=== PATIENT | male | born 1980 | race Caucasian/White ===

== ENCOUNTER → 2017-11-08 | Outpatient (CLI) | payer OTHER ==
[~2017-11-08] MED LIST: ALBU1AER9; AZITHROMYCIN; LISI-725 PO; OPTIRAY 320 IV PRN; PRED20TA PO
--- NOTE | 2017-11-08 17:00 | DIAGNOSTIC IMAGING REPORT ---
HEAD COMBO CLINICAL HISTORY: 37 years-old Male presenting with MIGRAINE HEADACHES. TECHNIQUE: Multidetector CT imaging of the head was performed before and after the administration of intravenous contrast. IV contrast: 93 mL of Optiray 320. A dose lowering technique was used consistent with the principles of ALARA (as low as reasonably achievable). COMPARISON: None. CT DOSE (mGy.cm): The estimated cumulative dose is 1228.53 mGy.cm. FINDINGS: Film Technician topogram: Unremarkable. Ventricles and sulci normal in size. Brain parenchyma normal in appearance with preserved sun-white differentiation. No mass effect or midline shift. No hemorrhage or acute territorial infarct. No extra-axial fluid collection. Paranasal sinuses and mastoid air cells clear. Calvarium intact. No abnormal parenchymal enhancement. Intracranial vasculature grossly patent. IMPRESSION: 1. No acute intracranial pathology. No abnormal enhancement. Electronically signed by: Patel Santoro M.D. 11/08/2017 4:59 PM Dictated Date/Time: 11/08/2017 4:54 PM
[2017-11-08 17:21] LABS: BASO % 0.3 %; BASO ABS # 0.03 K/uL (0-0.2); EOS % 1.3 %; EOS ABS # 0.13 K/uL (0-0.5); HEMATOCRIT 46.8 % (42-52); HEMOGLOBIN 16.1 g/dL (14.0-18.0); IG# 0.04 K/uL (0.00-0.02); LYMPH % 26.6 %; LYMPH ABS # 2.57 K/uL (1.2-3.4); MEAN CELL VOLUME 82.5 fL (80-100); MEAN CORPUSCULAR HEMOGLOBIN 28.4 pg (25-34); MEAN PLATELET VOLUME 10.5 fL (7.4-10.4); MONO % 8.1 %; MONO ABS # 0.78 K/uL (0.11-0.59); NEUT % 63.3 %; PLATELET COUNT 201 K/uL (130-400); RED CELL DISTRIBUTION WIDTH CV 13.3 % (11.5-14.5); RED CELL DISTRIBUTION WIDTH SD 39.9 fL (36.4-46.3); WHITE BLOOD COUNT 9.65 K/uL (4.8-10.8)
[2017-11-08 17:22] LABS: MEAN CORPUSCULAR HGB CONC 34.4 g/dl (32-36)
[2017-11-08 17:49] LABS: ALBUMIN 4.1 gm/dl (3.4-5.0); ALKALINE PHOSPHATASE 96 U/L (45-117); ALT/SGPT 66 U/L (12-78); AST/SGOT 28 U/L (15-37); BLOOD UREA NITROGEN 10 mg/dl (7-18); CALCIUM 8.9 mg/dl (8.5-10.1); CARBON DIOXIDE 29 mmol/L (21-32); CREATININE 1.05 mg/dl (0.60-1.40); GLUCOSE 91 mg/dl (70-99); POTASSIUM 4.4 mmol/L (3.5-5.1); SODIUM 133 mmol/L (136-145)
== END | disposition home or self-care (01) ==
LOC: C.CTS 16:35
PROVIDERS: ATTEND Family Medicine
DX: G43.909 Migraine, unspecified, not intractable, without status migrainosus (principal)

== ENCOUNTER 2020-05-23 05:04 | Observation (INO) ==
--- NOTE | 2020-05-21 10:06 | Anesthesiology Consultation ---
Date of Service May 21, 2020 Assessment & Plan (1) Encounter for pre-operative examination: Chart Review Chart Review: Acceptable Risk for Surgery (pending DOS evaluation and preop Covid testing ) and Patient NOT seen in Pre Admission Testing Per nursing assessment 05/20/2020, pt resides in [facility]. 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 Wears mask, uses good hand hygiene and socially distances. 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 At time of nursing interview, no known Covid positive contacts or Covid related symptoms. Covid test 05/19/20= results pending. Covid results will need confirmed DOS but then pt will need reassessed by anesthesia DOS- if pt did come into contact with PUI/Covid patients at [facility] then he may need rapid Wyatt test vs. rule. Will leave to anesthesiologist discretion. History Surgery Operation Date: 05/23/20 07:15 Proposed Procedures p Tonsillectomy, - Breanna Mitchell MD s Uvulopalatoplasty, Somnoplasty of Tongue - Breanna Mitchell MD Height/Weight Height: 6 ft 3 in Weight: 145.15 kg Allergies Allergy/AdvReac Type Severity Reaction Status Date / Time sulfamethoxazole Allergy Unknown Rash Verified 05/20/20 15:59 [From Bactrim] trimethoprim [From Bactrim] Allergy Unknown Rash Verified 05/20/20 15:59 Medications Home Medications Medication Instructions Recorded Confirmed Last Taken clonazepam 1 mg PO BID PRN 05/20/20 05/20/20 Unknown lisinopril 10 mg PO QAM 05/20/20 05/20/20 Unknown nebivolol [Bystolic] 5 mg PO QAM 05/20/20 05/20/20 Unknown nilotinib [Tasigna] 300 mg PO Q12H 05/20/20 05/20/20 Unknown Past Medical History Medical History Anxiety CML in remission DX'D 5 YRS AGO F/U DR ROLAND COLON GERD (gastroesophageal reflux disease) Hypertension Sleep apnea Past Family History Family History Brother Family history of diabetes mellitus Past Surgical History Surgical History History of cholecystectomy History of colonoscopy History of esophagogastroduodenoscopy (EGD) History of neck surgery FUSION C3-C4 Social History Smoking Status: Former smoker Do You Dip or Chew Tobacco: No (QUIT YRS AGO) Smoking End Date: QUIT 3 YRS AGO Hx Alcohol Use: Yes Alcohol type: hard liquor alcohol intake frequency: a few times a week Hx Substance Use: No Testing Laboratory Results 03/29/20= WBC: 11.16 H/H: 16.6/50.1 PLATELETS: 228 SODIUM: 140 POTASSIUM: 4.5 CHLORIDE: 98 CO2: 30 BUN: 13 CREATININE: 1.2 GLUCOSE: 90 Electrocardiogram Date: 03/29/20 Findings: + NSR @ (83) Chest X-Ray Date: 02/29/20 Findings: + NAD Echocardiogram Date: 01/29/20 EF: 55% Other Findings: + LVH (Mild/concentric) Valvular Disease: + no significant valvular disease Stress Test Date: 04/21/17 Type: exercise (Echo) Resting EF: 70% Resting LV Function: normal Resting RWMA: + none MPHR =90%. The exercise echocardiographic examination is normal without resting left ventricular wall motion abnormalities or inducible ischemia. Stress EKG response was normal. 8.3 METS achieved. Mild TR.
--- NOTE | 2020-05-21 14:58 | History & Physical Report ---
Date of Service May 21, 2020 Assessment & Plan (1) Sleep apnea: tonsillectomy, uvulopalatoplasty, somnoplasty of tongue History of Present Illness Chief Complaint: sleep apnea Primary Care Provider: Jerry Peters 40 yo with sleep apnea, unable to wear CPAP Allergies Allergy/AdvReac Type Severity Reaction Status Date / Time sulfamethoxazole Allergy Unknown Rash Verified 05/20/20 15:59 [From Bactrim] trimethoprim [From Bactrim] Allergy Unknown Rash Verified 05/20/20 15:59 Home Medications Home Medications Medication Instructions Recorded Confirmed Type clonazepam 1 mg PO BID PRN 05/20/20 05/20/20 History lisinopril 10 mg PO QAM 05/20/20 05/20/20 History nebivolol [Bystolic] 5 mg PO QAM 05/20/20 05/20/20 History nilotinib [Tasigna] 300 mg PO Q12H 05/20/20 05/20/20 History Past Med/Surg History Medical History Anxiety CML in remission DX'D 5 YRS AGO F/U DR ROLAND COLON GERD (gastroesophageal reflux disease) Hypertension Sleep apnea Surgical History History of cholecystectomy History of colonoscopy History of esophagogastroduodenoscopy (EGD) History of neck surgery FUSION C3-C4 Family History Brother Family history of diabetes mellitus Social History Smoking Status: Former smoker Second Hand Exposure: No; Hx Alcohol Use: Yes Alcohol type: hard liquor Hx Substance Use: No Preferred Language: Citizen Of [place] Communication Ability: Effective Discharge Planner Required: No Beliefs That Will Affect Care: None Current Living Situation: Spouse and Family Feels Safe at Home: Yes Physical Exam Constitutional: WD/WN, vitals as above Eyes: PERRL, conjunctivae normal, anicteric sclerae ENMT: Mouth: + oropharynx abnormality (large tonsils and tongue) Neck: trachea midline, no thyromegaly Respiratory: normal respiratory effort, lungs clear to auscultation Cardiovascular: RRR, no murmur, no edema
--- NOTE | 2020-05-22 12:25 | History & Physical Report ---
Date of Service May 22, 2020 History of Present Illness Primary Care Provider: Jerry Peters Allergies Allergy/AdvReac Type Severity Reaction Status Date / Time sulfamethoxazole Allergy Unknown Rash Verified 05/20/20 15:59 [From Bactrim] trimethoprim [From Bactrim] Allergy Unknown Rash Verified 05/20/20 15:59 Home Medications Home Medications Medication Instructions Recorded Confirmed Type clonazepam 1 mg PO BID PRN 05/20/20 05/20/20 History lisinopril 10 mg PO QAM 05/20/20 05/20/20 History nebivolol [Bystolic] 5 mg PO QAM 05/20/20 05/20/20 History nilotinib [Tasigna] 300 mg PO Q12H 05/20/20 05/20/20 History Past Med/Surg History Medical History (Updated 05/21/20 @ 14:58 by Breanna Mitchell MD) Anxiety CML in remission DX'D 5 YRS AGO F/U DR ROLAND COLON GERD (gastroesophageal reflux disease) Hypertension Sleep apnea Surgical History History of cholecystectomy History of colonoscopy History of esophagogastroduodenoscopy (EGD) History of neck surgery FUSION C3-C4 Family History Brother Family history of diabetes mellitus Social History Smoking Status: Former smoker Second Hand Exposure: No; Hx Alcohol Use: Yes Alcohol type: hard liquor Hx Substance Use: No Preferred Language: Cape Verdean Communication Ability: Effective Hospitalist Program Director Required: No Beliefs That Will Affect Care: None Current Living Situation: Spouse and Family Feels Safe at Home: Yes
[2020-05-23] MEDS ORDERED: LACTATED RINGER'S 1,000 ML IV SCH (06:00)
[2020-05-23] MEDS ORDERED: CEFAZOLIN 3000MG 72.5 ML IV SCH (06:00)
[2020-05-23] MEDS ORDERED: ONDANSETRON INJ 2 MG/ML 2 ML VIAL ONE (06:35)
[2020-05-23] MEDS ORDERED: LIDOCAINE HCL 2% 2 ML VIAL/AMP(20MG/ML) INFIL ONE (06:35)
[2020-05-23] MEDS ORDERED: MIDAZOLAM HCL 1 MG/ML 2ML VIAL ONE (06:35)
[2020-05-23] MEDS ORDERED: PROPOFOL IV EMULSION 10 MG/ML 20 ML VIAL IV ONE (06:35)
[2020-05-23] MEDS ORDERED: LARYING-O-JET KIT (LTA) ONE (06:35)
[2020-05-23] MEDS ORDERED: fentaNYL citrate 100 MCG/2 ML VIAL ONE ×2 (06:35→08:01)
[2020-05-23] MEDS ORDERED: DEXAMETHASONE SOD INJ 4 MG/ML VIAL ONE (06:35)
[2020-05-23] MEDS ORDERED: EPINEPHrine INJ 1 MG/ML AMP ONE (06:45)
[2020-05-23] MEDS ORDERED: BUPIVACAINE 0.5 % 5 MG/1 ML MPF 30ML VIAL ONE (06:46)
[2020-05-23] MEDS ORDERED: DexMEDEtomidine HCL IV 100 MCG/ML VIAL ONE (06:47)
--- NOTE | 2020-05-23 06:56 | History & Physical Bridge Note ---
Date of Service May 23, 2020 History & Physical Bridge Note I have examined the patient, reviewed the History & Physical and in the interval since the performance of the History & Physical I have noted the following changes of clinical significance: no changes noted
[2020-05-23] MEDS ORDERED: ONDANSETRON INJ 2 MG/ML 2 ML VIAL IV PRN (07:26)
[2020-05-23] MEDS ORDERED: ATROPINE SULFATE 0.1 MG/ML 10ML SYR IV PRN (07:26)
[2020-05-23] MEDS ORDERED: LABETALOL HCL IV 5 MG/ML 20ML IV PRN (07:26)
[2020-05-23] MEDS ORDERED: ACETAMINOPHEN/HYDROCODONE ELIX 15 ML/CUP UDP PO PRN (08:45)
[2020-05-23] MEDS: fentaNYL citrate 100 MCG/2 ML VIAL IV PRN ×4 (08:59→09:14)
--- NOTE | 2020-05-23 09:00 | Operative Report ---
Post Operative Report Pre & Post Diagnosis Operation Date: 05/23/20 07:00 Pre-Op Diagnosis: Sleep Apnea Post-Op Diagnosis: Sleep Apnea I identified the patient and participated in the time-out.: Yes Procedure Operation Date: 05/23/20 07:00 Actual Procedures p Tonsillectomy, Uvulopalatoplasty,(Not Applicable) - Breanna Mitchell MD s Somnoplasty of Tongue(Not Applicable) - Breanna Mitchell MD Surgeon Breanna Mitchell MD Baseball Coach None Estimated Blood Loss 250 Findings Consistent with Post-Op Diagnosis Specimens Tonsils and uvula Anesthesia Type General Complications none Disposition Accompanied Patient To Recovery: Yes Disposition: Recovery Room Indications 40-year-old with significant sleep apnea and inability to tolerate CPAP Description of Procedure He was brought to the operating room, prepped and draped in the usual sterile manner after general endotracheal anesthesia and after proper identification. The mouthgag was placed in the soft palate was retracted using the red Urbina catheter. The peritonsillar area were injected with 0.5% Marcaine with 1- 200,000 strength epinephrine. Adenoid area was inspected and there was minimal adenoid tissue. Right tonsillectomy was performed using the Coblation device from the superior pole to the inferior pole as was the left tonsillectomy. Hemostasis was controlled using the Coblation device. The uvula and a portion of the soft palate was resected of its anterior half using the #12 blade retaining the posterior portion of the uvula. Hemostasis was controlled using the suction cautery and the Coblation device. V cut was placed in the palatal glasses fold and a flap was cut into the palatopharyngeus fold which was then rotated laterally into the V cut. All the mucosal edges were closed with int errupted locking 2-0 chromic sutures with the uvula sewn upon itself. The pharynx was irrigated clean with saline. Radiofrequency volume reduction of the tongue base was performed using the EQUIP Advantage machine creating 7 double-pronged lesions in the base of the tongue with the setting at 600 J in the rapid lesion mode. Pharynx was irrigated clean with saline. He tolerated procedure well was taken recovery area in satisfactory condition. I attest to the content of the Intraoperative Record and any orders documented therein. Any exceptions are noted below.
[2020-05-23] MEDS: LACTATED RINGER'S 1,000 ML IV SCH ×2 (09:45→19:09)
--- NOTE | 2020-05-23 09:46 | Anesthesiology Progress Note ---
Date of Service May 23, 2020 Anesthesia Post Procedure Vital Signs Vital Signs: Temp Pulse Pulse Resp BP BP Pulse Ox 05/23/20 09:40 83 14 147/91 H 97 05/23/20 09:25 36.8 C 81 13 147/91 H 98 05/23/20 09:15 85 17 154/99 H 98 05/23/20 09:05 84 17 163/95 H 96 05/23/20 08:55 88 16 153/91 H 96 05/23/20 08:45 36.1 C L 86 21 137/85 91 05/23/20 05:32 36.7 C 77 20 138/86 96 Pain Intensity Throat: Pain Intensity: 4 Transfer of Care Handoff Completed per policy Notes Mental Status: alert / awake / arousable Patient Amnestic to Procedure: Yes Nausea / Vomiting: adequately controlled Pain: adequately controlled Airway Patency, RR, SpO2: stable & adequate BP & HR: stable & adequate Hydration State: stable & adequate Anesthetic Complications: no major complications apparent
[2020-05-23] MEDS: methylPREDNISolone 100 MG in SYRINGE 0 ML IV SCH ×2 (10:38→20:57)
[2020-05-23] MEDS: ONDANSETRON INJ 2 MG/ML 2 ML VIAL IV PRN ×2 (11:01→21:20)
[2020-05-23] MEDS: MoRPHine SULFATE 4 MG/ML 1 ML CARP\\VIAL IV PRN ×3 (11:05→21:20)
[2020-05-23] MEDS: LORazepam 1 MG TAB PO PRN ×2 (12:46→21:17)
[2020-05-23] MEDS ORDERED: CEFAZOLIN 3000MG/72.5 ML BAG IV SCH (19:00)
[2020-05-23] MEDS: CEFAZOLIN 3,000 MG in DEXTROSE 5% 50 ML IV SCH (19:52)
[2020-05-24] MEDS: MoRPHine SULFATE 4 MG/ML 1 ML CARP\\VIAL IV PRN ×3 (02:28→07:41)
[2020-05-24] MEDS: LACTATED RINGER'S 1,000 ML IV SCH (05:27)
[2020-05-24] MEDS: methylPREDNISolone 100 MG in SYRINGE 0 ML IV SCH (07:42)
[2020-05-24] MEDS: CEFAZOLIN 3,000 MG in DEXTROSE 5% 50 ML IV SCH (07:42)
--- NOTE | 2020-05-24 08:40 | Discharge Summary ---
Date of Service May 24, 2020 Admission HPI Per Admitting Provider 40 yo with sleep apnea, unable to wear CPAP Admission Exam (Per Admitting) Constitutional WD/WN, vitals as above Eyes PERRL, conjunctivae normal, anicteric sclerae ENMT Mouth: + oropharynx abnormality (large tonsils and tongue) Neck trachea midline, no thyromegaly Respiratory normal respiratory effort, lungs clear to auscultation Cardiovascular RRR, no murmur, no edema Discharge Data Procedures Performed Operation Date: 05/23/20 07:00 Actual Procedures p Tonsillectomy, Uvulopalatoplasty,(Not Applicable) - Breanna Mitchell MD s Somnoplasty of Tongue(Not Applicable) - Breanna Mitchell MD Hospital Course (1) Sleep apnea: had tonsillectomy/UPPP/RFVR of tongue base in OR, observed overnight, O2 sat. >90%, tolerating liquids, sutures in place, tongue mild swelling, mobile
[2020-05-24] MEDS: LORazepam 1 MG TAB PO PRN (11:26)
--- NOTE | 2020-05-25 09:13 | ENT Consultation ---
Date of Consultation May 25, 2020 Assessment & Plan (1) Sleep apnea: Oximetry did not go off the last 2 nights with the setting at 85% whereas previously he would desaturate down to 70% (2) Acute dehydration: With the sutures intact and no sign of bleeding I will start him on clear liquids and then advance diet as tolerated History of Present Illness Reason for Consultation: Dysphasia status post tonsillectomy and uvulopalatopharyngoplasty Attending Physician: Breanna Mitchell MD Allergies Allergy/AdvReac Type Severity Reaction Status Date / Time sulfamethoxazole Allergy Mild Rash Verified 05/24/20 23:01 [From Bactrim] trimethoprim [From Bactrim] Allergy Mild Rash Verified 05/24/20 23:01 Home Medications Home Medications Medication Instructions Recorded Confirmed Type Bystolic 5 mg PO QAM 05/20/20 05/24/20 History Tasigna 300 mg PO Q12H 05/20/20 05/24/20 History clonazepam 1 mg PO BID PRN 05/20/20 05/24/20 History lisinopril 10 mg PO QAM 05/20/20 05/24/20 History hydrocodone-acetaminophen 15 ml PO Q6H PRN #500 ml 05/24/20 05/24/20 Rx hydrocodone-acetaminophen [[place]] 1 tab PO Q6H PRN #30 tab 05/24/20 05/24/20 Rx prednisone 10 mg PO BID 7 Days #140 ml 05/24/20 05/24/20 Rx Patient History Medical History Anxiety CML in remission DX'D 5 YRS AGO F/U DR ROLAND COLON GERD (gastroesophageal reflux disease) Hypertension Sleep apnea CPAP on and off Surgical History History of cholecystectomy History of colonoscopy History of esophagogastroduodenoscopy (EGD) History of neck surgery FUSION C3-C4 Status post uvulopalatopharyngoplasty Family History Brother Family history of diabetes mellitus Social History Smoking Status: Former smoker Second Hand Exposure: No; Hx Alcohol Use: Yes Alcohol type: hard liquor Hx Substance Use: No Preferred Language: Montserratian Communication Ability: Effective Vehicle Window Tinter Required: No Beliefs That Will Affect Care: None Current Living Situation: Spouse and Family Feels Safe at Home: Yes Physical Exam Constitutional: + obese Eyes: PERRL, conjunctivae normal, anicteric sclerae ENMT: Mouth: + oropharynx abnormality (Status post tonsillectomy/UPPP with all the sutures in place and no sign of) Neck: trachea midline, no thyromegaly Respiratory: normal respiratory effort, lungs clear to auscultation Cardiovascular: RRR, no murmur, no edema
--- NOTE | 2020-05-26 08:49 | Surgery Progress Note ---
Date of Service May 26, 2020 Assessment & Plan (1) Sleep apnea: improving (2) Difficulty swallowing: able to tolerate liquid diet, dysphagia due to sutures and RFVR of tongue base improving, should be able to take liquid diet at home Admission and Anticipated Discharge Date Admission Date: May 23, 2020 Subjective still feels swollen, tolerating only liquids Physical Exam Constitutional: + obese Eyes: PERRL, conjunctivae normal, anicteric sclerae ENMT: Mouth: + oropharynx abnormality (sutures in place, tongue swelling sudsiding, mobile, much improved from Sat) Neck: trachea midline, no thyromegaly (1) Difficulty swallowing Dysphagia type: unspecified Qualified Code(s): R13.10 - Dysphagia, unspecified
== END 2020-05-24 14:29 | disposition home or self-care (01) ==
LOC: 3N 05:04 → ASU 05:04

== ENCOUNTER 2020-05-24 22:18 | Observation (INO) ==
[2020-05-24] MEDS ORDERED: ACETAMINOPHEN 1,000 MG/100 ML VIAL IV STA (22:33)
[2020-05-24] MEDS ORDERED: SODIUM CHLORIDE 0.9% 1000ML 1,000 ML IV ONE (22:33)
[2020-05-24] MEDS ORDERED: DEXAMETHASONE SOD INJ 10 MG/ML VIAL IV ONE (22:33)
[2020-05-24 23:26] LABS: Hematocrit (blood only) 49.5 % (42-52); Hemoglobin 16.6 g/dL (14.0-18.0); Mean Corpuscular Hemoglobin 28.7 pg (25-34); Mean Corpuscular Hgb Conc 33.5 g/dL (32-36); Mean Corpuscular Volume 85.5 fL (80-100); Mean Platelet Volume 11.5 fL (7.4-10.4); Platelet Count 268 K/uL (130-400); RDW Coefficient of Variation 13.8 % (11.5-14.5); RDW Standard Deviation 42.6 fL (36.4-46.3); Red Blood Count 5.79 M/uL (4.7-6.1); White Blood Count 25.03 K/uL (4.8-10.8)
[2020-05-24] MEDS ORDERED: LORazepam 2 MG/4 ML VIAL ONE (23:26)
[2020-05-24] MEDS ORDERED: LORazepam 1 MG/2 ML VIAL IV STA (23:28)
[2020-05-24] MEDS ORDERED: ONDANSETRON INJ 2 MG/ML 2 ML VIAL ONE (23:34)
[2020-05-24 23:42] LABS: Basophils # (auto) 0.01 K/uL (0-0.2); Immature Granulocytes # (auto) 0.09 K/uL (0.00-0.02); Immature Granulocytes % (auto) 0.4 %; Lymphocytes # (auto) 1.41 K/uL (1.2-3.4); Lymphocytes % (auto) 5.6 %; Monocytes # (auto) 1.73 K/uL (0.11-0.59); Monocytes % (auto) 6.9 %; Neutrophils # (auto) 21.79 K/uL (1.4-6.5); Neutrophils % (auto) 87.1 %
[2020-05-24 23:43] LABS: Albumin Level 3.8 gm/dl (3.4-5.0); BUN Creatinine Ratio 19.4 (10-20); Calcium 9.2 mg/dl (8.5-10.1); Creatinine Clr Calc Pharmacy 116.8 ml/min; Est GFR (African American) 83.3; Est GFR (Non-African American) 71.9; Potassium 4.4 mmol/L (3.5-5.1)
[2020-05-24 23:46] LABS: Albumin Globulin Ratio 0.9 (0.9-2); Bilirubin,Total 0.6 mg/dl (0.2-1); Globulin 4.1 gm/dl (2.5-4.0); Total Protein 7.9 gm/dl (6.4-8.2)
--- NOTE | 2020-05-25 00:17 | Emergency Department Note ---
History of Present Illness General Chief complaint: Sore Throat Stated complaint: SORE THROAT, S/P TONSILECTOMY History of Present Illness Maximum Pain Intensity: 9 This 40-year-old presents to the ER complaining of unable to swallow and throat discomfort who had surgery yesterday by Dr. Mitchell Location: Throat Quality: Uncomfortable Severity: Moderate Duration: Yesterday Timing: Yesterday Context: Patient is unable to drink and came in Modifying factors: better with rest; worse with drinking Patient had tonsillectomy, uvulectomy and partial tongue removal for sleep apnea. Patient states since then he has been unable to swallow anything. He has not taken his steroids or his pain meds. Patient denies chest pain, fevers, flulike illness. Home Medications Home Medications Medication Instructions Recorded Confirmed Type Bystolic 5 mg PO QAM 05/20/20 05/24/20 History Tasigna 300 mg PO Q12H 05/20/20 05/24/20 History clonazepam 1 mg PO BID PRN 05/20/20 05/24/20 History lisinopril 10 mg PO QAM 05/20/20 05/24/20 History hydrocodone-acetaminophen 15 ml PO Q6H PRN #500 ml 05/24/20 05/24/20 Rx hydrocodone-acetaminophen [Sutton] 1 tab PO Q6H PRN #30 tab 05/24/20 05/24/20 Rx prednisone 10 mg PO BID 7 Days #140 ml 05/24/20 05/24/20 Rx Allergies Allergy/AdvReac Type Severity Reaction Status Date / Time sulfamethoxazole Allergy Mild Rash Verified 05/24/20 23:01 [From Bactrim] trimethoprim [From Bactrim] Allergy Mild Rash Verified 05/24/20 23:01 Past Med/Surg History Medical History Anxiety CML in remission DX'D 5 YRS AGO F/U DR ROLAND COLON GERD (gastroesophageal reflux disease) Hypertension Sleep apnea CPAP on and off Surgical History History of cholecystectomy History of colonoscopy History of esophagogastroduodenoscopy (EGD) History of neck surgery FUSION C3-C4 Family History Brother Family history of diabetes mellitus Social History Smoking Status: Never smoker Second Hand Exposure: No; Hx Alcohol Use: Yes Alcohol type: hard liquor Hx Substance Use: No Preferred Language: Mongolian Communication Ability: Effective Cruller Maker Required: No Beliefs That Will Affect Care: None Current Living Situation: Spouse and Family Feels Safe at Home: Yes Review of Systems A total of 10 systems reviewed and were otherwise negative Physical Exam Vital Signs Vital Signs - 24 hr 05/24/20 22:20 05/24/20 23:41 05/25/20 00:00 Temperature 36.9 C Temperature Source Oral Pulse Rate 101 H 95 H 98 H Pulse Rate from SpO2 Sensor 93 H 94 H Pulse Rhythm Regular Pulse Strength Normal Respiratory Rate 18 17 17 Respiratory Effort / Characteristics Non-Labored Spontaneous Respiratory Depth Normal Respiratory Pattern Regular Blood Pressure 152/94 H 132/107 H 128/90 Blood Pressure Mean 113 116 100 Blood Pressure Position Sitting Pulse Oximetry 96 98 94 Oxygen Delivery Method Room Air Sepsis Recent Fever Within 48 Hours No Sepsis New/Unexplained Change in Mental Status No Sepsis Action Taken by Nursing No Action Required VITALS: Vitals are noted on the nurse's note and reviewed by myself. Vital signs stable. GENERAL: Pleasant male with a muffled voice, in no acute distress, nondiaphoretic, well-developed well-nourished. SKIN: The skin was without rashes, erythema, edema, or bruising. There is no tenting of the skin. Capillary reflex less than 2 seconds. HEAD: Normocephalic atraumatic. EARS: External auditory canals clear, tympanic membranes pearly sun without erythema or effusion bilaterally. EYES: Pupils equal round and reactive to light and accommodation. Conjunctivae without injection, sclerae without icterus. Extraocular movements intact. NOSE: Patent, turbinates without inflammation or discharge. No sinus tenderness. MOUTH: Mucous membranes moist. Pharynx with erythema and postsurgical changes. No active bleeding. Airway patent. Tongue does not deviate. Some swelling noted. I am able to visualize the back of the throat. NECK: Supple without nuchal rigidity. No lymphadenopathy. No thyromegaly. Cervical spine is nontender. No JVD. HEART: Regular rate and rhythm LUNGS: Clear to auscultation bilaterally without wheezes, rales or rhonchi. No retractions or accessory muscle use. ABDOMEN: Positive bowel sounds x 4. Normal tympanic percussion. Soft, nontender, without masses or organomegaly. Sharif sign negative. No guarding or rebound tenderness. No CVA tenderness MUSCULOSKELETAL: No muscle atrophy, erythema, or edema noted. NEURO: Patient was alert and oriented to person place and time. Normal sensation to light and sharp touch. No focal neurological deficits. Course Administered Medications Discontinued Medications Dexamethasone (Dexamethasone Sod Inj 10 Mg/Ml Vial) 10 mg IV NOW ONE Stop: 05/24/20 22:34 Last Admin: 05/24/20 23:29 Dose: 10 mg Documented by: [id number] Acetaminophen (Ofirmev) 1,000 mg in 100 mls @ 400 mls/hr IV NOW STA Stop: 05/24/20 22:47 Last Infusion: 05/24/20 23:44 Dose: 0 mls/hr Documented by: [id number] Admin: 05/24/20 23:28 Dose: 400 mls/hr Documented by: [id number] Sodium Chloride (Nss 1000ml) 1,000 mls @ 999 mls/hr IV .Q1H1M ONE Stop: 05/24/20 23:33 Last Admin: 05/24/20 23:28 Dose: 999 mls/hr Documented by: [id number] Lorazepam (Ativan) 1 mg in 2 mls @ 2 mls/min IV NOW STA Stop: 05/24/20 23:29 Last Admin: 05/24/20 23:44 Dose: 2 mls/min Documented by: [id number] Lorazepam (Lorazepam 2 Mg/4 Ml Vial) Confirm Administered Dose 2 mg .ROUTE .STK- MED ONE Stop: 05/24/20 23:27 Last Increment: 05/24/20 23:28 Dose: 1 mg Documented by: [id number] Ondansetron HCl (Ondansetron Inj 2 Mg/Ml 2 Ml Vial) Confirm Administered Dose 4 mg .ROUTE .STK-MED ONE Stop: 05/24/20 23:35 Last Admin: 05/24/20 23:44 Dose: 4 mg Documented by: [id number] Medical Decision Making Medical Records Attestation: I reviewed the patient's medical records. Home Medications Current Medication List: was personally reviewed by me Laboratory Data Attestation: I reviewed the patient's lab results. Result diagrams: 05/24/20 23:11 05/24/20 23:11 Lab Results 05/24/20 05/24/20 Range/Units 23:11 23:11 WBC 25.03 H (4.8-10.8) K/uL RBC 5.79 (4.7-6.1) M/uL Hgb 16.6 (14.0-18.0) g/dL Hct 49.5 (42-52) % MCV 85.5 (80-100) fL MCH 28.7 (25-34) pg MCHC 33.5 (32-36) g/dL RDW Std Deviation 42.6 (36.4-46.3) fL RDW Coeff of Dangelo 13.8 (11.5-14.5) % Plt Count 268 (130-400) K/uL MPV 11.5 H (7.4-10.4) fL Immature Gran % (Auto) 0.4 % Neut % (Auto) 87.1 % Lymph % (Auto) 5.6 % Keith % (Auto) 6.9 % Eos % (Auto) 0.0 % Baso % (Auto) 0.0 % Neut # (Auto) 21.79 H (1.4-6.5) K/uL Lymph # (Auto) 1.41 (1.2-3.4) K/uL Keith # (Auto) 1.73 H (0.11-0.59) K/uL Eos # (Auto) 0.00 (0-0.5) K/uL Baso # (Auto) 0.01 (0-0.2) K/uL Immature Gran # (Auto) 0.09 H (0.00-0.02) K/uL Sodium 137 (136-145) mmol/L Potassium 4.4 (3.5-5.1) mmol/L Chloride 103 (98-107) mmol/L Carbon Dioxide 28 (21-32) mmol/L Anion Gap 6.0 (3-11) BUN 25 H (7-18) mg/dl Creatinine 1.26 (0.6-1.4) mg/dl Est Cr Clr Drug Dosing 116.8 ml/min Est GFR ( Amer) 83.3 Est GFR (Non-Af Amer) 71.9 BUN/Creatinine Ratio 19.4 (10-20) Glucose 130 H (70-99) mg/dl Calcium 9.2 (8.5-10.1) mg/dl Total Bilirubin 0.6 (0.2-1) mg/dl AST 61 H (15-37) U/L ALT 71 (12-78) U/L Alkaline Phosphatase 96 (45-117) U/L Total Protein 7.9 (6.4-8.2) gm/dl Albumin 3.8 (3.4-5.0) gm/dl Globulin 4.1 H (2.5-4.0) gm/dl Albumin/Globulin Ratio 0.9 (0.9-2) Blood Pressure Blood Pressure Findings: Normal blood pressure MDM Narrative Prior records/ancillary studies reviewed and summarized above. Nursing notes reviewed. The patient's history was concerning for unable to swallow after surgery. Differential diagnosis: Etiologies such as postsurgical complication, metabolic, infection, hypo/hyperglycemia, electrolyte abnormalities, cardiac sources, intracerebral event, toxicologic, neurologic, as well as others were entertained. Physical examination: As above. ER treatment provided: IV Lock IV fluids, steroids, Tylenol, Ativan On reassessment the patient felt better. Diagnostics interpretation by me: The labs revealed leukocytosis Consultation: A consultation was placed with Dr. Mitchell recommends medical admission and steroids. I spoke to Dr. Nielsen, the hospitalist. The case was discussed and diagnostics were reviewed. The patient was evaluated in the ER for further treatment. Exam and history seem consistent with postoperative swelling from recent surgery. Patient states he is unable to swallow any liquids and there is concerns for dehydration. He will be medically admitted. Patient was given IV fluids, Decadron, Tylenol and Ativan. He was feeling better. ENT and medicine were consulted. Patient will be admitted. By the evaluation outlined above emergent etiologies such as infection, electrolyte abnormalities, cardiac sources, intracerebral event, toxologic, neurologic, abnormalities blood glucose, metabolic, as well as others were deemed relatively unlikely. The pt informed about the findings as listed above. All questions were answered and pleased with the treatment. The chart was completed utilizing [employer] voice recognition software. Grammatical errors, random word insertions, pronoun errors, and incomplete sentences are an occassional consequence of this system due to software limitations, ambient noise, and hardware issues. Any formal questions or concerns about the content, text, or information contained within the body of this dictation should be directly addressed to the physician food trades assistants for clarification. Impression & Plan Difficulty swallowing, Acute dehydration Discharge Plan Visit Data Chief Complaint: Sore Throat Stated Complaint: SORE THROAT, S/P TONSILECTOMY ED Provider: Hussain Clifton ED Midlevel Provider: Karlene Santana Discharge Problem: Difficulty swallowing, Acute dehydration Patient Disposition: Being Evaluated by Hospitalist Condition: Good Forms Stand Alone Forms: [facility] Prescriptions Prescriptions: No Action clonazepam 1 mg Tablet 1 mg PO BID PRN (Reason: Anxiety) RF: 0 lisinopril 10 mg Tablet 10 mg PO QAM RF: 0 Bystolic 5 mg Tablet 5 mg PO QAM RF: 0 Tasigna 150 mg Capsule 300 mg PO Q12H RF: 0 hydrocodone-acetaminophen [Sutton] 5-325 mg tablet 1 tab PO Q6H PRN (Reason: pain) Qty: 30 RF: 0 hydrocodone-acetaminophen 7.5-325 mg/15 mL solution 15 ml PO Q6H PRN (Reason: pain) Qty: 500 RF: 0 prednisone 5 mg/5 mL solution 10 mg PO BID 7 Days Qty: 140 RF: 0 Referrals Referrals: Hussain Reyes DO [Primary Care Provider] -
--- NOTE | 2020-05-25 00:44 | History & Physical Report ---
Date of Service May 25, 2020 Assessment & Plan (1) Status post uvulopalatopharyngoplasty: 40yo C male s/p tonsillectomy and UPPP performed by Dr. Mitchell on 05/23/20 presenting with difficulty swallowing, inability to take medications at home. He is protecting his airway, no stridor -Observation to medical floor -Decadron 10mg IV given in ER, will continue Decadron 3mg IV TID -Morphine as needed for pain -Continuous pulse oximetry Present on Admission?: Yes (2) Difficulty swallowing: As above -Steroids, pain control -NPO for now, advance diet as tolerated -Aspiration precautions Present on Admission?: Yes (3) GERD (gastroesophageal reflux disease): Chronic. Patient not on any medications at home -Continue to monitor Present on Admission?: Yes (4) Hypertension: Blood pressure within normal range at this time -Hold Lisinopril and Bystolic -Monitor Present on Admission?: Yes (5) CML in remission: Patient diagnosed with CML 5 years ago. Currently on Tasigna 300mg po BID -Resume when PO is tolerated F/E/N - NSS, electrolytes WNL, NPO for now Ppx - low risk for DVT Code - Full Dispo - Observation to medical floor, continuous pulse oximetry Present on Admission?: Yes History of Present Illness Chief Complaint: sore throat Primary Care Provider: DO Jerry Giraldo Cappton is a 40yo C male with history of HTN, GERD, CML on Tasigna and MALAIKA with CPAP intolerance. Patient had a tonsillectomy, uvulopalatoplasty and radiofrequency volume reduction of tongue base performed by Dr. Mitchell on 05/24/20. The surgery was well tolerated with no complications identified. He was discharged home today in stable condition. Patient returns to the ER today - unable to swallow pills/food or water, drooling and has hoarseness. He is in considerable pain and feels anxious as well. No additional complaints at this time. ER team discussed case with Dr. Mitchell who recommended admission/IVF/Steroids ER Course: Decadron 10mg IV, Tylenol 1gm IV, Lorazepam 1mg IV, Zofran 4mg IV, NSS x 1L Allergies Allergy/AdvReac Type Severity Reaction Status Date / Time sulfamethoxazole Allergy Mild Rash Verified 05/24/20 23:01 [From Bactrim] trimethoprim [From Bactrim] Allergy Mild Rash Verified 05/24/20 23:01 Home Medications Home Medications Medication Instructions Recorded Confirmed Type Bystolic 5 mg PO QAM 05/20/20 05/24/20 History Tasigna 300 mg PO Q12H 05/20/20 05/24/20 History clonazepam 1 mg PO BID PRN 05/20/20 05/24/20 History lisinopril 10 mg PO QAM 05/20/20 05/24/20 History hydrocodone-acetaminophen 15 ml PO Q6H PRN #500 ml 05/24/20 05/24/20 Rx hydrocodone-acetaminophen [[place]] 1 tab PO Q6H PRN #30 tab 05/24/20 05/24/20 Rx prednisone 10 mg PO BID 7 Days #140 ml 05/24/20 05/24/20 Rx Past Med/Surg History Medical History Anxiety CML in remission DX'D 5 YRS AGO F/U DR ROLAND COLON GERD (gastroesophageal reflux disease) Hypertension Sleep apnea CPAP on and off Surgical History History of cholecystectomy History of colonoscopy History of esophagogastroduodenoscopy (EGD) History of neck surgery FUSION C3-C4 Family History Brother Family history of diabetes mellitus Social History Smoking Status: Never smoker Second Hand Exposure: No; Hx Alcohol Use: Yes Alcohol type: hard liquor Hx Substance Use: No Preferred Language: Ecuadorean Communication Ability: Effective Weigher Production Required: No Beliefs That Will Affect Care: None Current Living Situation: Spouse and Family Feels Safe at Home: Yes Review of Systems Review of Systems: All systems reviewed & are unremarkable except as noted in HPI & below Physical Exam Physical Exam: General: patient resting uncomfortably, NAD, non-toxic in appearance, AA&O x 4, +hoarseness, +spitting Skin: warm, dry, intact, no rashes or lesions HEENT: NC/AT, PERRL, EOMI, anicteric sclera, conjunctiva without injection, external ear normal to inspection and nontender, nares patent, moist mucus membranes, dentition intact, +swelling of palate, sutures in place, neck supple, trachea midline, no LAD, no thyromegaly, no JVD Heart: +S1/S2, regular, no m/r/g Lungs: equal air entry bilaterally, no rales/rhonchi/wheezes Abd: +BS, soft, NT/ND, no masses/organomegaly/ascites Ext: warm, 2+ pulses in UE/LE bilaterally, no clubbing/cyanosis or edema Neuro: nonfocal, patient AA&O x 4, speech intact, no facial droop, moving all extremities on command with equal strength 5/5 Results & Data Results & Data ([facility]) Vital Signs (Past 12 Hours) Vital Signs Temp Pulse Resp BP Pulse Ox 05/25/20 00:00 98 H 17 128/90 94 05/24/20 23:41 95 H 17 132/107 H 98 05/24/20 22:20 36.9 C 101 H 18 152/94 H 96 Laboratory Results Lab Results 05/24/20 05/24/20 Range/Units 23:11 23:11 WBC 25.03 H (4.8-10.8) K/uL RBC 5.79 (4.7-6.1) M/uL Hgb 16.6 (14.0-18.0) g/dL Hct 49.5 (42-52) % MCV 85.5 (80-100) fL MCH 28.7 (25-34) pg MCHC 33.5 (32-36) g/dL RDW Std Deviation 42.6 (36.4-46.3) fL RDW Coeff of Dangelo 13.8 (11.5-14.5) % Plt Count 268 (130-400) K/uL MPV 11.5 H (7.4-10.4) fL Immature Gran % (Auto) 0.4 % Neut % (Auto) 87.1 % Lymph % (Auto) 5.6 % Peach % (Auto) 6.9 % Eos % (Auto) 0.0 % Baso % (Auto) 0.0 % Neut # (Auto) 21.79 H (1.4-6.5) K/uL Lymph # (Auto) 1.41 (1.2-3.4) K/uL Peach # (Auto) 1.73 H (0.11-0.59) K/uL Eos # (Auto) 0.00 (0-0.5) K/uL Baso # (Auto) 0.01 (0-0.2) K/uL Immature Gran # (Auto) 0.09 H (0.00-0.02) K/uL Sodium 137 (136-145) mmol/L Potassium 4.4 (3.5-5.1) mmol/L Chloride 103 (98-107) mmol/L Carbon Dioxide 28 (21-32) mmol/L Anion Gap 6.0 (3-11) BUN 25 H (7-18) mg/dl Creatinine 1.26 (0.6-1.4) mg/dl Est Cr Clr Drug Dosing 116.8 ml/min Est GFR ( Amer) 83.3 Est GFR (Non-Af Amer) 71.9 BUN/Creatinine Ratio 19.4 (10-20) Glucose 130 H (70-99) mg/dl Calcium 9.2 (8.5-10.1) mg/dl Total Bilirubin 0.6 (0.2-1) mg/dl AST 61 H (15-37) U/L ALT 71 (12-78) U/L Alkaline Phosphatase 96 (45-117) U/L Total Protein 7.9 (6.4-8.2) gm/dl Albumin 3.8 (3.4-5.0) gm/dl Globulin 4.1 H (2.5-4.0) gm/dl Albumin/Globulin Ratio 0.9 (0.9-2) Code Status & VTE Plan Code Status FULL PG Care Time/CCT Total # of Minutes Spent Total Time Spent with Patient: Total time spent is greater than 50% in coordination of care (as documented) at patient's floor/unit and/or counseling patient: Coding Level of Care Code 23128 OBS Care - Level 3 Diagnoses Status post uvulopalatopharyngoplasty Z98.890 Difficulty swallowing R13.10 Dysphagia type: unspecified GERD (gastroesophageal reflux disease) K21.0 Esophagitis presence: with esophagitis Hypertension I10 Hypertension type: essential hypertension CML in remission C92.11 (1) Difficulty swallowing Dysphagia type: unspecified Qualified Code(s): R13.10 - Dysphagia, unspecified (2) GERD (gastroesophageal reflux disease) Esophagitis presence: with esophagitis Qualified Code(s): K21.0 - Gastro- esophageal reflux disease with esophagitis (3) Hypertension Hypertension type: essential hypertension Qualified Code(s): I10 - Essential (primary) hypertension
[2020-05-25] MEDS: MoRPHine SULFATE 2 MG/ML CARP IV PRN ×6 (01:45→21:39)
[2020-05-25] MEDS: SODIUM CHLORIDE 0.9% 1000ML 1,000 ML IV SCH ×2 (01:45→06:13)
[2020-05-25] MEDS ORDERED: MoRPHine SULFATE 4 MG/ML 1 ML CARP\\VIAL IV STA (02:50)
[2020-05-25] MEDS ORDERED: dexAMETHasone 3 MG in SYRINGE 0 ML IV SCH (06:00)
[2020-05-25] MEDS: dexAMETHasone 3 MG in SYRINGE 0 ML IV SCH ×2 (06:13→13:31)
[2020-05-25] MEDS: ONDANSETRON INJ 2 MG/ML 2 ML VIAL IV PRN ×2 (08:53→21:39)
[2020-05-25] MEDS ORDERED: ACETAMINOPHEN SUSP 325 MG/10.15 ML UDC PO PRN (11:34)
--- NOTE | 2020-05-25 14:35 | Hospitalist Progress Note ---
Date of Service May 25, 2020 Assessment & Plan (1) Status post uvulopalatopharyngoplasty: -Continue Decadron 3mg IV TID -Morphine as needed for pain - will increase to 2 mg q2h as patient has not had adequate pain relief, acetaminophen -Continuous pulse oximetry (2) Difficulty swallowing: As above -Steroids, pain control -Clears and advance as tolerated per Dr. Mitchell -Aspiration precautions (3) GERD (gastroesophageal reflux disease): Chronic. 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 Currently on Tasigna 300mg po BID -Resume when able to swallow pills Ppx - low risk for DVT - SCDs Code - Full Admission and Anticipated Discharge Date Admission Date: May 25, 2020 Supervising Physician Co-Signing Physician Notes Attending Attestation & Progress Note: Pt seen & examined, chart reviewed, care plan d/w FRED Oliveros. I agree w/ the friedman components of her documentation. During my assessment there was no respiratory distress or audible stridor. Voice was clear and without hoarseness. He admitted for feeling very anxious. Exam: gen - obese, no distress HEENT - oral cavity - evidence of UPPP; healing tissue posterior pharynx/ulceration (expected appearance); no trismus heart - RRR, s1 s2 lungs - no stridor, wheeze or increased work of breathing; CTA b/l abd - soft, NT, ND, BS+ ext - no edema A/P: POD #2 s/p UPPP for MALAKIA admitted 2nd to dysphagia, inability to tolerate hydration, pain/swelling no evidence of airway compromise on physical exam o2 sats wnl consider increase in steroids low-dose prn medication for anxiety if desired by patient continue to monitor carefully Rohith Serrano MD Subjective Mr. Almazan continues to have quite a lot of pain in his throat as well as difficulty swallowing. He otherwise has no complaints. He denies any difficulty breathing ROS Constitutional: no chills, aches, sweats or fever Respiratory: no sob,cough, sputum, or wheezing Cardiac: no chest pain, palpitations, edema, orthopnea or lightheadedness GI: no abdominal pain, nausea, vomiting, diarrhea or constipation : no dysuria or hesitancy Extremities: no joint pain or weakness Skin: no rash All other systems reviewed and negative Physical Exam Physical Exam: General: no distress Eyes: normal inspection, PERLL Respiratory: chest non tender, clear to auscultation, normal breath sounds, no respiratory distress, no accessory muscle use Cardiac: regular rate and rhythm, no rub or gallop, no murmur, no edema, no jvd GI/: active bowel sounds, no abd pain or tenderness, soft, non distended Extremities: normal range of motion, normal strength, non tender Neuro/Psych: alert and oriented x 3, normal mood and affect Skin: normal color, dry Results & Data Results & Data ([facility]) Vital Signs (Past 12 Hours) Vital Signs Temp Pulse Resp BP Pulse Ox 05/25/20 07:57 36.2 C L 87 20 149/80 H 95 PG Care Time/CCT Total # of Minutes Spent Total Time Spent with Patient: Total time spent is greater than 50% in coordination of care (as documented) at patient's floor/unit and/or counseling patient: Coding Level of Care Code 94341 Subseq Hosp Care Lvl 3 Diagnoses Status post uvulopalatopharyngoplasty Z98.890 Difficulty swallowing R13.10 Dysphagia type: unspecified GERD (gastroesophageal reflux disease) K21.0 Esophagitis presence: with esophagitis Hypertension I10 Hypertension type: essential hypertension CML in remission C92.11 (1) Difficulty swallowing Dysphagia type: unspecified Qualified Code(s): R13.10 - Dysphagia, unspecified (2) GERD (gastroesophageal reflux disease) Esophagitis presence: with esophagitis Qualified Code(s): K21.0 - Gastro- esophageal reflux disease with esophagitis (3) Hypertension Hypertension type: essential hypertension Qualified Code(s): I10 - Essential (primary) hypertension
[2020-05-25] MEDS: LORazepam 1 MG/2 ML VIAL IV PRN ×2 (15:02→20:32)
[2020-05-25] MEDS ORDERED: SODIUM CHLORIDE 0.9% 1000ML 1,000 ML IV SCH (15:45)
[2020-05-25] MEDS: dexAMETHasone 6 MG in SYRINGE 0 ML IV SCH (21:01)
[2020-05-26] MEDS: MoRPHine SULFATE 2 MG/ML CARP IV PRN ×4 (00:24→12:04)
[2020-05-26] MEDS: dexAMETHasone 6 MG in SYRINGE 0 ML IV SCH ×3 (05:54→21:40)
[2020-05-26 07:07] LABS: Hematocrit (blood only) 46.6 % (42-52); Hemoglobin 15.5 g/dL (14.0-18.0); Mean Corpuscular Hemoglobin 28.4 pg (25-34); Mean Corpuscular Hgb Conc 33.3 g/dL (32-36); Mean Corpuscular Volume 85.3 fL (80-100); Mean Platelet Volume 10.9 fL (7.4-10.4); Platelet Count 226 K/uL (130-400); RDW Coefficient of Variation 13.6 % (11.5-14.5); RDW Standard Deviation 41.8 fL (36.4-46.3); Red Blood Count 5.46 M/uL (4.7-6.1); White Blood Count 15.48 K/uL (4.8-10.8)
[2020-05-26 07:46] LABS: Calcium 8.3 mg/dl (8.5-10.1); Creatinine Clr Calc Pharmacy 137.3 ml/min; Potassium 4.5 mmol/L (3.5-5.1)
[2020-05-26] MEDS ORDERED: METOPROLOL TARTRATE 25 MG TAB PO SCH (09:00)
[2020-05-26] MEDS: lisinopriL 10 MG TAB PO SCH (09:10)
[2020-05-26] MEDS: LORazepam 1 MG/2 ML VIAL IV PRN ×2 (10:07→21:40)
[2020-05-26] MEDS ORDERED: NEBIVOLOL HCL 5 MG TAB PO SCH ×2 (11:30)
[2020-05-26] MEDS: HYDROCODONE/APAP 2.5MG/108MG ELIX 5 ML UDP PO PRN ×2 (15:51→21:49)
--- NOTE | 2020-05-26 16:11 | Hospitalist Progress Note ---
Date of Service May 26, 2020 Assessment & Plan (1) Status post uvulopalatopharyngoplasty: - Increased Decadron to 6mg IV TID as patient was not getting relief last evening -Will trial po pain medications - Lortab 5 mg elixer - if able to control pain overnight with po medications can likely dc in the morning -Continuous pulse oximetry (2) Difficulty swallowing: As above -Steroids, pain control -Clears and advance as tolerated per Dr. Mitchell -Aspiration precautions (3) GERD (gastroesophageal reflux disease): Chronic. 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 Currently on Tasigna 300mg po BID -Resume when able to swallow pills - patient does not think he'd be able to tolerate them at this point Ppx - low risk for DVT - SCDs, encouraged ambulation, avoid risk of bleeding at suture sites with chemoprophylaxis Code - Full Admission and Anticipated Discharge Date Admission Date: May 25, 2020 Subjective Mr. Almazan is feeling better but continues to have difficulty with swallowing. No stridor or sob. ROS Constitutional: no chills, aches, sweats or fever Respiratory: no sob,cough, sputum, or wheezing Cardiac: no chest pain, palpitations, edema, orthopnea or lightheadedness GI: no abdominal pain, nausea, vomiting, diarrhea or constipation : no dysuria or hesitancy Extremities: no joint pain or weakness Skin: no rash All other systems reviewed and negative Physical Exam Physical Exam: General: no distress Eyes: normal inspection, PERLL Respiratory: chest non tender, clear to auscultation, normal breath sounds, no respiratory distress, no accessory muscle use Cardiac: regular rate and rhythm, no rub or gallop, no murmur, no edema, no jvd GI/: active bowel sounds, no abd pain or tenderness, soft, non distended Extremities: normal range of motion, normal strength, non tender Neuro/Psych: alert and oriented x 3, normal mood and affect Skin: normal color, dry Results & Data Results & Data ([facility]) Vital Signs (Past 12 Hours) Vital Signs Temp Pulse Resp BP BP Pulse Ox Pulse Ox 05/26/20 11:59 36.5 C 61 20 153/82 H 97 05/26/20 08:00 97 05/26/20 07:54 36.4 C L 80 20 179/99 H 97 PG Care Time/CCT Total # of Minutes Spent Total Time Spent with Patient: Total time spent is greater than 50% in coordination of care (as documented) at patient's floor/unit and/or counseling patient: Coding Level of Care Code 20413 Subseq Hosp Care Lvl 2 Diagnoses Status post uvulopalatopharyngoplasty Z98.890 Difficulty swallowing R13.10 Dysphagia type: unspecified GERD (gastroesophageal reflux disease) K21.0 Esophagitis presence: with esophagitis Hypertension I10 Hypertension type: essential hypertension CML in remission C92.11 (1) Difficulty swallowing Dysphagia type: unspecified Qualified Code(s): R13.10 - Dysphagia, unspecified (2) GERD (gastroesophageal reflux disease) Esophagitis presence: with esophagitis Qualified Code(s): K21.0 - Gastro- esophageal reflux disease with esophagitis (3) Hypertension Hypertension type: essential hypertension Qualified Code(s): I10 - Essential (primary) hypertension
[2020-05-26] MEDS: ONDANSETRON INJ 2 MG/ML 2 ML VIAL IV PRN (21:49)
[2020-05-27] MEDS: HYDROCODONE/APAP 2.5MG/108MG ELIX 5 ML UDP PO PRN ×3 (01:53→12:02)
[2020-05-27] MEDS: dexAMETHasone 6 MG in SYRINGE 0 ML IV SCH (05:06)
[2020-05-27] MEDS: lisinopriL 10 MG TAB PO SCH (08:06)
[2020-05-27] MEDS: LORazepam 1 MG/2 ML VIAL IV PRN (09:47)
--- NOTE | 2020-05-27 12:11 | Discharge Summary ---
Date of Service May 27, 2020 Admission HPI Per Admitting Provider Jerry Almazan is a 40yo C male with history of HTN, GERD, CML on Tasigna and MALAIKA with CPAP intolerance. Patient had a tonsillectomy, uvulopalatoplasty and radiofrequency volume reduction of tongue base performed by Dr. Mitchell on 05/24/20. The surgery was well tolerated with no complications identified. He was discharged home today in stable condition. Patient returns to the ER today - unable to swallow pills/food or water, drooling and has hoarseness. He is in considerable pain and feels anxious as well. No additional complaints at this time. ER team discussed case with Dr. Mitchell who recommended admission/IVF/Steroids ER Course: Decadron 10mg IV, Tylenol 1gm IV, Lorazepam 1mg IV, Zofran 4mg IV, NSS x 1L Principal Diagnosis Difficulty swallowing post op Discharge Exam Constitutional WD/WN, vitals as above ENMT white tongue coating, sutures in throat intact Respiratory normal respiratory effort, lungs clear to auscultation Cardiovascular RRR, no murmur, no edema Gastrointestinal (Abdomen) normal bowel sounds, soft, nontender, no hepatosplenomegaly Musculoskeletal no cyanosis or clubbing, extremities motor strength 5/5 Skin no rashes, warm and dry Neurologic moves all extremities and awake Psychiatric A+Ox3, euthymic affect Discharge Data Allergies Allergy/AdvReac Type Severity Reaction Status Date / Time metoprolol Allergy Intermediate Hives Verified 05/26/20 08:39 sulfamethoxazole Allergy Mild Rash Verified 05/24/20 23:01 [From Bactrim] trimethoprim [From Bactrim] Allergy Mild Rash Verified 05/24/20 23:01 Consultations 05/24/20 23:49 ED Decision to Admit Stat Hospital Course (1) Status post uvulopalatopharyngoplasty: - Patient swallowing liquids, feeling much better, feels ready to get home. Pain controlled Continue steroid taper provided by Dr. Mitchell post op for home, given IV decadron inpatient He understands he is to return if his symptoms worsen or he he has any bleeding (2) Difficulty swallowing: -Steroids, pain control -Clears and advance as tolerated -Aspiration precautions (3) GERD (gastroesophageal reflux disease): Chronic. 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 Currently on Tasigna 300mg po BID -Resume when able to swallow pills (6) Thrush: Clotrimazole troch 5x/day for 1 week Total Time Total Time Spent Total Time Spent (In Minutes): greater than 30 mintues Discharge Plan Discharge Items Patient Disposition: Home - Self-Care Reason For Visit: SORE THROAT, INABILITY TO SWALLOW Discharge Diagnosis: Post op difficulty swallowing Condition on Discharge: Good Activity: As commented below Activity Comment: Per your surgical discharge instructions Non-emergency contact: Primary Care Provider and Surgeon Call non-emergency contact if: you have any medication questions, your symptoms worsen, your pain is not controlled and you have a fever Follow-up/Referrals: Breanna Mitchell MD [Surgeon] - 06/04/20 3:45 pm (Please keep your previously made appointment with Dr. Mitchell ) Hussain Reyes DO [Primary Care Provider] - 06/19/20 8:00 am Diet: Full liquid Diet Comment: Advance your diet as you are able to tolerate Addtl Attending Provider Instructions: Please continue your steroid taper per Dr. Mitcehll's prescription. I have sent a prescription for clotrimazole troches for thrush for you to take for a week. Pending Studies at Discharge: No Stand-Alone [facility] Sm[facility] Cessation Medications and DC Order Prescriptions: New clotrimazole 10 mg jennifer 10 mg PO 5XD 7 Days Qty: 35 RF: 0 ondansetron 4 mg tablet,disintegrating 4 mg PO Q4H PRN (Reason: nausea and vomiting) Qty: 5 RF: 0 Continued clonazepam 1 mg Tablet 1 mg PO BID PRN (Reason: Anxiety) RF: 0 lisinopril 10 mg Tablet 10 mg PO QAM RF: 0 Bystolic 5 mg Tablet 5 mg PO QAM RF: 0 Tasigna 150 mg Capsule 300 mg PO Q12H RF: 0 hydrocodone-acetaminophen [[place]] 5-325 mg tablet 1 tab PO Q6H PRN (Reason: pain) Qty: 30 RF: 0 hydrocodone-acetaminophen 7.5-325 mg/15 mL solution 15 ml PO Q6H PRN (Reason: pain) Qty: 500 RF: 0 prednisone 5 mg/5 mL solution 10 mg PO BID 7 Days Qty: 140 RF: 0 Discharge Orders: Discharge Order (Routine); Ordered 05/27/20 Ordered By: Elena Balbuena/Other Patient Handouts: Nutrition After Surgery Admission Data Admit Date/Time: 05/26/20 16:34 Attending Provider: Inocente Cohen Admit Provider: Cecilia Nielsen Primary Care Provider: Hussain Reyes Other Providers: Cecilia Nielsen Other Interventions: Discharge Summary Assessment (RN) Last Done: 05/27/20 13:03 Supervising Physician Co-Signing Physician Notes Patient seen and examined on the day of discharge. I agree with the discharge summary by Elena IBARRA. I have reviewed the chart including labs, imaging and plans for discharge. patient feeling a lot better on Dexamethasone, able to swallow with less discomfort he has follow up scheduled with Dr. Mitchell - s/p uvulopalatolaryngoplasty pain is better, home on steroid taper - CML: resume Tasigna, in remission - GERD: continue PPI Coding Level of Care Code D/C Day Management >30 mins Diagnoses Status post uvulopalatopharyngoplasty Z98.890 Difficulty swallowing R13.10 Dysphagia type: unspecified GERD (gastroesophageal reflux disease) K21.0 Esophagitis presence: with esophagitis Hypertension I10 Hypertension type: essential hypertension CML in remission C92.11 Thrush B37.0
--- NOTE | 2020-05-27 22:43 | Electrocardiogram Report ---
Test Reason : Blood Pressure : / mmHG Vent. Rate : 060 BPM Atrial Rate : 060 BPM P-R Int : 136 ms QRS Dur : 102 ms QT Int : 428 ms P-R-T Axes : 043 030 021 degrees QTc Int : 428 ms Normal sinus rhythm Normal ECG No previous ECGs available Confirmed by Jay Grider ([id number]) on 05/27/2020 10:43:07 PM Referred By: REFERRED SELF Confirmed By:Jay Grider
== END 2020-05-27 13:19 | disposition home or self-care (01) | DRG 392 ==
LOC: ED 22:18 → 3W 05-25 00:34 → SUATTDRO 05-25 00:34 → INTOOBSV 05-25 00:34 → 3W 05-25 01:02 → 2S 05-25 20:05